=== PATIENT | male | born 1975 | race African-American/Black ===

== ENCOUNTER 2017-07-12 16:04 | Emergency (ER) | payer OTHER ==
[~2017-07-12] VITALS: Ht 185.4 cm; Wt 88.0 kg
[2017-07-12 16:55] LABS: BASO % 1 % (0-3); EOS % 9 % (0-3); HEMATOCRIT 37.6 % (39.0-53.0); HEMOGLOBIN 13.1 g/dL (13.0-17.5); LYMPH # 1.8 x10^3/uL (1.0-4.8); LYMPH % 42 % (24-48); MEAN CORPUSCULAR HEMOGLOBIN 33 pg (25-35); MEAN CORPUSCULAR HGB CONC 35 g/dL (31-37); MEAN CORPUSCULAR VOLUME 95 fL (79-100); MONO % 14 % (0-9); NEUT % 34 % (31-73); PLATELET COUNT 226 x10^3/uL (140-400); RED BLOOD COUNT 3.95 x10^6/uL (4.30-5.70); RED CELL DISTRIBUTION WIDTH 13.2 % (11.5-14.5); WHITE BLOOD COUNT 4.2 x10^3/uL (4.0-11.0)
--- NOTE | 2017-07-12 17:01 | RAD ---
Portable chest, 07/12/2017 History: Chest pain, dizziness Comparison is made to a study from 11/19/2015. The heart size and pulmonary vascularity are normal. No pulmonary infiltrates are seen. There is no evidence of pleural fluid. IMPRESSION: No acute cardiopulmonary abnormality is detected.
[2017-07-12 17:08] LABS: CREATININE 0.9 mg/dL (0.7-1.3); GFR 112.5; POTASSIUM 3.8 mmol/L (3.5-5.1)
[2017-07-12 17:14] LABS: ALBUMIN 4.2 g/dL (3.4-5.0); DIRECT BILIRUBIN 0.1 mg/dL (0.0-0.2); TOTAL BILIRUBIN 0.7 mg/dL (0.2-1.0); TOTAL PROTEIN 7.5 g/dL (6.4-8.2)
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
[2017-07-12 21:08] VITALS: BP 132/86
--- NOTE | 2017-07-13 06:19 | EKG ---
[facility] [address] [place] [address] Test Date: 2017-07-12 Test Time: 16:24:59 Pat Name: RUBEN TIJERINA Department: Room: Gender: M [employer] Out Machine Operator: : 1975 Requested By: DADA VILLARREAL Order Number: [id number] Reading MD: Measurements Intervals [place] Rate: 64 P: 62 AL: 194 QRS: 54 QRSD: 76 T: 64 QT: 348 QTc: 359 Interpretive Statements SINUS RHYTHM OTHERWISE NORMAL ECG RI6.01 Unconfirmed report No previous ECG available for comparison
== END 2017-07-12 21:35 | disposition home or self-care (01) ==
LOC: ER 16:04
DX: R00.2 Palpitations (principal); R42 Dizziness and giddiness; F41.9 Anxiety disorder, unspecified; Z88.5 Allergy status to narcotic agent
CPT/HCPCS: 36415; 71010; 80048; 80076; 83690; 84484; 85025; 93005; 99285-25

== ENCOUNTER 2017-11-28 14:43 | Emergency (ER) | payer OTHER | END 2017-11-28 16:09 | disposition home or self-care (01) | LOC: ER 14:43 | DX: R09.81 Nasal congestion (principal); R05 Cough; R06.02 Shortness of breath; R07.89 Other chest pain; J45.909 Unspecified asthma, uncomplicated; F12.10 Cannabis abuse, uncomplicated; Z88.5 Allergy status to narcotic agent | CPT/HCPCS: 99283 ==

== ENCOUNTER 2018-06-21 14:54 | Emergency (ER) | payer OTHER ==
[~2018-06-21] VITALS: Ht 180.3 cm; Wt 92.5 kg
[~2018-06-21 14:54] MED LIST: ALBU6.7H8 IH; PRED50TA PO
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
[2018-06-21 16:13] LABS: BILIRUBIN,URINE NEGATIVE (NEG); CLARITY,URINE CLEAR; COLOR,URINE YELLOW; NITRITE,URINE NEGATIVE (NEG); PROTEIN,URINE NEGATIVE (NEG-TRACE); UROBILINOGEN,URINE 0.2 mg/dL (0.2 mg/dL)
--- NOTE | 2018-06-21 16:28 | RAD ---
EXAM: Abdomen and pelvis CT without intravenous contrast. HISTORY: Flank pain. Dysuria. TECHNIQUE: Computed tomographic images of the abdomen and pelvis were obtained without contrast. Multiplanar reformatting was performed. *One or more of the following individualized dose reduction techniques were utilized for this examination: 1. Automated exposure control. 2. Adjustment of the mA and/or kV according to patient size. 3. Use of iterative reconstruction technique. COMPARISON: None. FINDINGS: Evaluation of the lower thorax is unremarkable. No hepatic lesion is seen. The gallbladder, pancreas, spleen and adrenal glands are unremarkable. There is a large appendicolith within the appendix, measuring 1.9 cm in maximum dimension. There is dilatation of the appendix at the level of the appendicolith. However, the remainder the appendix is normal in caliber and there is no appendiceal wall thickening. No abnormally thickened or dilated loop of bowel is seen. There is mild urinary bladder wall thickening likely due to relative under distention. There is no evidence of nephro ureterolithiasis or obstructive uropathy. There is no lymphadenopathy. There is no suspicious osseous lesion. IMPRESSION: 1. Large appendicolith measuring 1.9 cm within the mid aspect of the appendix, with associated dilatation of the appendix at the level of the appendicolith. The remainder the appendix is unremarkable. 2. No evidence of nephroureterolithiasis or obstructive uropathy. There is mild urinary bladder wall thickening likely due to underdistention. Given a history of dysuria, correlate with urinalysis to exclude cystitis. Electronically signed by: Roxana Dsouza MD (06/21/2018 4:24 PM) [facility]
[2018-06-21 16:33] LABS: BACTERIA,URINE 0 /HPF (0-FEW); RBC,URINE 0 /HPF (0-2)
[2018-06-21] MEDS ORDERED: cefTRIAXone IM 1 GM VIAL IM ONE (17:00)
[2018-06-21] MEDS ORDERED: LIDOCAINE 1% PF 2 ML VIAL. INJ ONE (17:00)
[2018-06-21] MEDS ORDERED: AZITHROMYCIN 250 MG TABLET. PO ONE (17:00)
[2018-06-21] MEDS ORDERED: DOXYCYCLINE HYCLATE 100 MG TABLET PO ONE (17:00)
[2018-06-21] MEDS ORDERED: DOXY100T9 PO (17:01)
[2018-06-21 17:35] VITALS: BP 123/67
== END 2018-06-21 17:42 | disposition home or self-care (01) ==
LOC: ER 14:54
DX: J06.9 Acute upper respiratory infection, unspecified (principal); N30.00 Acute cystitis without hematuria; K38.1 Appendicular concretions; J45.909 Unspecified asthma, uncomplicated; F41.9 Anxiety disorder, unspecified; Z88.5 Allergy status to narcotic agent
CPT/HCPCS: 74176; 81001; 87086; 87491; 87591; 96372; 99285; J0696; Q0144

== ENCOUNTER 2020-10-27 12:02 | Emergency (ER) | payer OTHER ==
[~2020-10-27] VITALS: Ht 182.9 cm; Wt 99.0 kg
[~2020-10-27 12:02] MED LIST changes: -ALBU6.7H8 IH; +DOXY-96 PO; +PROVENTIL HFA6.7 G2 IH
[2020-10-27 12:25] LABS: BILIRUBIN,URINE NEGATIVE (NEG); CLARITY,URINE CLEAR; COLOR,URINE YELLOW; NITRITE,URINE NEGATIVE (NEG); PROTEIN,URINE 30 mg/dL (NEG-TRACE); UROBILINOGEN,URINE 0.2 mg/dL (0.2 mg/dL)
[2020-10-27 12:35] LABS: BACTERIA,URINE FEW /HPF (0-FEW); RBC,URINE 0 /HPF (0-2); WBC,URINE >40 /HPF (0-4)
[2020-10-27 13:40] VITALS: BP 174/92
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
--- NOTE | 2020-10-27 14:59 | RAD ---
Exam performed: CT abdomen and pelvis without contrast HISTORY: Flank pain with radiation of the abdomen with chills and urinary tract infection. DATE OF SERVICE: 10/27/2020. COMPARISON: CT abdomen and pelvis from 06/21/2018. TECHNIQUE: Contiguous helical acquisitions are obtained through the abdomen and pelvis without IV con trast. Sagittal and coronal reformatted images are obtained and reviewed. FINDINGS: Lung bases are clear. The visualized heart is normal. Unopacified liver, spleen, pancreas and gallbladder are normal. Both adrenal glands and bilateral kid neys are normal in size. There is no nephrolithiasis or hydronephrosis. A large calculus is redemonst rated in the right lower quadrant in the mid appendix. Small bowel loops are nondilated and unremarka ble. There is diffuse scattered stool in the colon. Urinary bladder is decompressed and apparently thick-walled. Mild prostatomegaly. No free or focal fl uid collections are seen. IMPRESSION: No evidence of urolithiasis or hydronephrosis seen. Contracted somewhat thick-walled urinary bladder. In correlation with the uterine findings, findings are perhaps related to cystitis. There are symptoms of flank pain, however due to lack of IV contrast , pyelonephritis cannot be excluded. PQRS Compliance Statement: One or more of the following individualized dose reduction techniques were utilized for this examinat ion: 1. Automated exposure control 2. Adjustment of the mA and/or kV according to patient size 3. Use of iterative reconstruction technique Electronically signed by: Sandi Galo MD (10/27/2020 2:57 PM) [id number]
[2020-10-27] MEDS ORDERED: CEPH-264 PO (15:04)
[2020-10-27] MEDS ORDERED: cefTRIAXone IM 1 GM VIAL IM ONE (15:15)
== END 2020-10-27 15:20 | disposition home or self-care (01) ==
LOC: ER 12:02
DX: N30.01 Acute cystitis with hematuria (principal); J45.909 Unspecified asthma, uncomplicated; Z87.891 Personal history of nicotine dependence; Z88.5 Allergy status to narcotic agent
CPT/HCPCS: 74176; 81001; 87086; 87491; 87591; 96372; 99284; J0696; 87077; 87186